=== PATIENT | female | born 1990 | race African-American/Black ===

== ENCOUNTER 2018-04-07 13:05 | Emergency (ER) | payer OTHER ==
[~2018-04-07] VITALS: Ht 177.8 cm; Wt 91.0 kg
[2018-04-07 13:09] VITALS: BP 139/70
== END 2018-04-07 19:30 | disposition left against medical advice (07) ==
LOC: ER 13:05
DX: R07.89 Other chest pain (principal); R10.10 Upper abdominal pain, unspecified; Z53.21 Procedure and treatment not carried out due to patient leaving prior to being seen by health care provider

== ENCOUNTER 2022-08-30 17:44 | Emergency (ER) | payer SELFPAY ==
[~2022-08-30] VITALS: Ht 177.8 cm; Wt 142.0 kg
[2022-08-30 17:53] VITALS: BP 132/79; TEMP 98.5; O2SAT 98
[2022-08-30 17:55] VITALS: PULSE 78; RESP 16
[2022-08-30 19:15] LABS: EOSINOPHILS % 2.2 % (0.0-5.0); HEMATOCRIT. 38.9 % (36.0-48.0); LYMPHOCYTES % 31.6 % (20.0-50.0); MEAN CORPUSCULAR HEMOGLOBIN 30.6 pg (28.0-32.0); MEAN CORPUSCULAR VOLUME 91.6 fL (81.0-99.0); MEAN PLATELET VOLUME 9.5 fl (7.4-10.4); MONOCYTES % 6.7 % (2.0-8.0); NEUTROPHILS % 58.5 % (40.0-76.0); PLATELET 231 x1000/uL (130-400); RED BLOOD CELL COUNT 4.25 mill/uL (4.2-5.4); RED CELL DISTRIBUTION WIDTH 12.7 % (11.6-14.6)
[2022-08-30 19:17] LABS: CHLORIDE 106 mEq/L (98-107)
[2022-08-30 19:24] LABS: PROTHROMBIN TIME 10.3 sec (9.6-11.0)
== END 2022-08-30 22:14 | disposition left against medical advice (07) ==
LOC: ER 17:55
DX: Z53.21 Procedure and treatment not carried out due to patient leaving prior to being seen by health care provider (principal)
CPT/HCPCS: 36415; 80053; 85025; 99281